=== PATIENT | male | born 1960 | race Caucasian/White ===

== ENCOUNTER 2020-01-23 07:10 | Emergency (ER) | payer SELFPAY ==
--- NOTE | 2020-01-23 07:37 | EDM.PDOC ---
ED HPI GENERAL MEDICAL PROBLEM - General Chief Complaint: General Stated Complaint: DIABETIC ISSURES Time Seen by Provider: 01/23/20 07:33 Source of Information: Reports: Patient History Limitations: Reports: No Limitations - History of Present Illness INITIAL COMMENTS - FREE TEXT/NARRATIVE: 59-year-old male presents to the ED for evaluation of type 2 diabetes. He states he is been out of his metformin for about 3 months. Was taking 500 mg twice daily. This primarily occurred because he could not afford the medication as he was laid off of work. He feels fine. He feels he has urinary frequency during the day but is not up much at night to go. His weight is staying stable. His only other problem is having some intermittent loose watery diarrhea once or twice per day. He tends to drink bottled water. He has been diabetic for approximately 3 years. Is a strong family history of diabetes. Onset: Other (Chronic problem) Duration: Chronic Location: Reports: Generalized (Mild weakness generalized) Quality: Reports: Other Severity: Mild Improves with: Reports: None Worsens with: Reports: None Context: Denies: Activity, Exercise, Lifting, Sick Contact, Trauma, Other Associated Symptoms: Reports: Malaise, Weakness. 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 Denies: Fever, Chills, Decreased Appetite HEENT: Reports: No Symptoms Respiratory: Reports: No Symptoms Cardiovascular: Reports: No Symptoms Endocrine: Reports: Fatigue GI/Abdominal: Reports: Diarrhea (Sent to be on the looser side usually once or twice per day) : Reports: Frequency, Other Musculoskeletal: Reports: Joint Pain (Tour usually x2 patient no pain in his knees hips low back and neck.) Skin: Reports: No Symptoms Neurological: Reports: No Symptoms Psychiatric: Reports: No Symptoms Hematologic/Lymphatic: Reports: No Symptoms Immunologic: Reports: No Symptoms ED EXAM, GENERAL - Physical Exam Exam: See Below Exam Limited By: No Limitations General Appearance: Alert, WD/WN, No Apparent Distress, Other (Temperature is 37.1 with a heart rate of 80. BP 117/77 with respiratory to 18. Pulse ox 100% on room air.) Eye Exam: Bilateral Eye: Normal Inspection, PERRL Throat/Mouth: Normal Inspection, Normal Lips, Normal Oropharynx, Other Head: Atraumatic, Normocephalic Neck: Normal Inspection, Supple, Non-Tender, Full Range of Motion. No: Lymphadenopathy (L), Lymphadenopathy (R) Respiratory/Chest: No Respiratory Distress, Lungs Clear, Normal Breath Sounds, No Accessory Muscle Use, Chest Non-Tender Cardiovascular: Normal Peripheral Pulses, Regular Rate, Rhythm, No Edema, No Gallop, No Murmur, No Rub Peripheral Pulses: 1+: Posterior Tibial (L), Posterior Tibial (R), Dorsalis Pedis (L), Dorsalis Pedis (R), 3+: Carotid (L), Carotid (R) GI/Abdominal: Normal Bowel Sounds, Soft, Non-Tender, No Organomegaly, No Abnormal Bruit, No Mass, Pelvis Stable (Male) Exam: No Hernia Back Exam: Normal Inspection, Full Range of Motion. No: CVA Tenderness (L), CVA Tenderness (R) Extremities: Normal Inspection, Normal Range of Motion, Non-Tender, No Pedal Edema Neurological: Alert, Oriented, CN II-XII Intact, Normal Cognition, Normal Gait, No Motor/Sensory Deficits Psychiatric: Normal Affect, Normal Mood Skin Exam: Warm, Dry, Intact, Normal Color, No Rash Course - Vital Signs Last Recorded V/S: Last Vital Signs Temp 37.1 C 01/23/20 07:19 Pulse 80 01/23/20 07:19 Resp 18 01/23/20 07:19 BP 117/77 01/23/20 07:19 Pulse Ox 100 01/23/20 07:19 - Orders/Labs/Meds Labs: Laboratory Tests 01/23/20 01/23/20 01/23/20 Range/Units 07:50 07:50 07:50 WBC 7.04 (4.23-9.07) K/mm3 RBC 4.55 L (4.63-6.08) M/mm3 Hgb 14.5 (13.7-17.5) gm/dl Hct 41.1 (40.1-51.0) % MCV 90.3 (79.0-92.2) fl MCH 31.9 (25.7-32.2) pg MCHC 35.3 (32.2-35.5) g/dl RDW Std Deviation 45.9 H (35.1-43.9) fL Plt Count 202 (163-337) K/mm3 MPV 9.6 (9.4-12.3) fl Neut % (Auto) 56.2 (34.0-67.9) % Lymph % (Auto) 28.8 (21.8-53.1) % [place] % (Auto) 11.9 (5.3-12.2) % Eos % (Auto) 2.6 (0.8-7.0) Baso % (Auto) 0.4 (0.1-1.2) % Neut # (Auto) 3.95 (1.78-5.38) K/mm3 Lymph # (Auto) 2.03 (1.32-3.57) K/mm3 [place] # (Auto) 0.84 H (0.30-0.82) K/mm3 Eos # (Auto) 0.18 (0.04-0.54) K/mm3 Baso # (Auto) 0.03 (0.01-0.08) K/mm3 Sodium 139 (136-145) mEq/L Potassium 3.6 (3.5-5.1) mEq/L Chloride 106 (98-107) mEq/L Carbon Dioxide 21 (21-32) mEq/L Anion Gap 15.6 H (5-15) BUN 19 H (7-18) mg/dL Creatinine 0.9 (0.7-1.3) mg/dL Est Cr Clr Drug Dosing 90.12 mL/min Estimated GFR (MDRD) > 60 (>60) mL/min BUN/Creatinine Ratio 21.1 H (14-18) Glucose 174 H (74-106) mg/dL Hemoglobin A1c (4.50-6.20) % Calcium 8.3 L (8.5-10.1) mg/dL Magnesium 1.7 L (1.8-2.4) mg/dl Total Bilirubin 0.7 (0.2-1.0) mg/dL AST 20 (15-37) U/L ALT 25 (16-63) U/L Alkaline Phosphatase 75 (46-116) U/L Total Protein 6.8 (6.4-8.2) g/dl Albumin 3.5 (3.4-5.0) g/dl Globulin 3.3 gm/dL Albumin/Globulin Ratio 1.1 (1-2) Cholesterol 109 (<200) mg/dL LDL Cholesterol Direct 71 (<100) mg/dL HDL Cholesterol 30.0 L (40-59) mg/dL Ketones 0.23 (0.0-0.3) mM / Range/Units 07:50 WBC (4.23-9.07) K/mm3 RBC (4.63-6.08) M/mm3 Hgb (13.7-17.5) gm/dl Hct (40.1-51.0) % MCV (79.0-92.2) fl MCH (25.7-32.2) pg MCHC (32.2-35.5) g/dl RDW Std Deviation (35.1-43.9) fL Plt Count (163-337) K/mm3 MPV (9.4-12.3) fl Neut % (Auto) (34.0-67.9) % Lymph % (Auto) (21.8-53.1) % [place] % (Auto) (5.3-12.2) % Eos % (Auto) (0.8-7.0) Baso % (Auto) (0.1-1.2) % Neut # (Auto) (1.78-5.38) K/mm3 Lymph # (Auto) (1.32-3.57) K/mm3 [place] # (Auto) (0.30-0.82) K/mm3 Eos # (Auto) (0.04-0.54) K/mm3 Baso # (Auto) (0.01-0.08) K/mm3 Sodium (136-145) mEq/L Potassium (3.5-5.1) mEq/L Chloride (98-107) mEq/L Carbon Dioxide (21-32) mEq/L Anion Gap (5-15) BUN (7-18) mg/dL Creatinine (0.7-1.3) mg/dL Est Cr Clr Drug Dosing mL/min Estimated GFR (MDRD) (>60) mL/min BUN/Creatinine Ratio (14-18) Glucose (74-106) mg/dL Hemoglobin A1c 7.40 H (4.50-6.20) % Calcium (8.5-10.1) mg/dL Magnesium (1.8-2.4) mg/dl Total Bilirubin (0.2-1.0) mg/dL AST (15-37) U/L ALT (16-63) U/L Alkaline Phosphatase (46-116) U/L Total Protein (6.4-8.2) g/dl Albumin (3.4-5.0) g/dl Globulin gm/dL Albumin/Globulin Ratio (1-2) Cholesterol (<200) mg/dL LDL Cholesterol Direct (<100) mg/dL HDL Cholesterol (40-59) mg/dL Ketones (0.0-0.3) mM - Radiology Interpretation Free Text/Narrative:: 59-year-old male presents to the ED for evaluation of fatigue. He has a known history of type 2 diabetes controlled with metformin but has been off of this medication for about 3 months due to lack of funds. He is feeling increasingly fatigued and is wondering if his blood sugars are out of control. He does not have lancets or testing materials to check his sugars. If his weight is stable. He is may be up once during the night to void. He does not take water to bed. He does drink a lot of water throughout the day. I can smell no ketones on his breath. His only other complaint is some intermittent diarrhea i.e. loose and watery once or twice per day out any blood. Plan routine labs to be performed including a glycosylated protein. He is essentially fasting at this time. His only other problem is hypercholesterolemia which will be checked today as well. - Re-Assessments/Exams Free Text/Narrative Re-Assessment/Exam: 01/23/20 08:24 Hematology is back revealing a normal white count at 7.04. The auto differential shows 56% neutrophils. Hemoglobin is 14.5 with hematocrit of 41.1. Platelet count 202,000 01/23/20 08:36 Chemistry reveals a sodium of 139 potassium 3.6. Chloride 106 with a bicarb of 21. Anion gap is 15.6. BUN is 19 with a creatinine of 0.9. GFR is greater than 60. Glucose 174 with a hemoglobin A1c of 7.40. Calcium is 8.3 with a magnesium of 1.7. Liver function is otherwise normal. Total protein 6.8 with an albumin fraction of 3.5. Cholesterol is 109 with an LDL cholesterol of 71 and HDL cholesterol of 30. Ketones are 0.23 . Blood sugars overall are very well controlled. I suspect that chronic loose stools is secondary to medicines being used for sinus disease especially with mucolytic agents. Plan I will return him to metformin 500 mg twice daily for diabetic control. He is used this in the past with little problems. I also wrote a prescription for lancets and for strips for the One Touch machine so that he can test his blood sugars on a random fashion. He wishes to follow-up locally and I suggested following up with Dr. Charles. Departure - Departure Time of Disposition: 08:49 Disposition: Home, Self-Care 01 Condition: Fair Clinical Impression: Type 2 diabetes mellitus Qualifiers: Diabetes mellitus fpc insulin use: without fpc use Diabetes mellitus complication status: without complication Qualified Code(s): E11.9 - Type 2 diabetes mellitus without complications - Discharge Information *PRESCRIPTION DRUG MONITORING PROGRAM REVIEWED*: Not Applicable *COPY OF PRESCRIPTION DRUG MONITORING REPORT IN PATIENT FIDEL: Not Applicable Prescriptions: metFORMIN [Glucophage XR] 500 mg PO BIDMEALS #60 tab.er Instructions: Type 2 Diabetes Mellitus, Diagnosis, Adult, Tips for Eating Away From Home If You Have Diabetes, Type 2 Diabetes Mellitus, Self Care, Adult Referrals: PCP,None [Primary Care Provider] - Forms: ED Department Discharge Additional Instructions: Evaluation in the emergency room today in regards to known type 2 diabetes mellitus without treatment for the last 3 months due to financial barriers to purchasing medications. Test today revealed your fasting blood sugar was elevated at 174 confirming that you do have type 2 diabetes. The glycosylated protein which looks at your blood sugars over the last 3 months was actually pretty darn good at 7.4. We aim for a treatment level of under 7 with just means the diabetes is fairly well controlled. Cholesterol also proved to be very well controlled at present. I suspect the chronic loose stools are secondary to medicines being used for sinus congestion. Suggest going off of these for about a week to see if the stools do not form up. Dust resuming metformin 500 mg twice daily for blood sugar control. Written in this regard. Scripts were also written for lancets and for the strips for the One Touch machine so that you can test your blood sugars on a random fashion as we discussed and write them down in a notebook which is helpful to the doctor. Just follow-up with Dr.brian Salmeron -who is an psychologist personnel on the third floor of the [facility] of the [facility]. Please phone [phone] to arrange an appointment. Sepsis Event Note - Evaluation Sepsis Screening Result: No Definite Risk - Focused Exam Vital Signs: Vital Signs Temp Pulse Resp BP Pulse Ox 01/23/20 07:19 37.1 C 80 18 117/77 100 Date Exam was Performed: 01/23/20 Time Exam was Performed: 08:53
[2020-01-23 08:26] LABS: HEMOGLOBIN A1C 7.4 % (4.50-6.20)
== END 2020-01-23 09:10 | disposition home or self-care (01) ==
LOC: JD.ED 07:10
DX: E11.9 Type 2 diabetes mellitus without complications (principal); E78.00 Pure hypercholesterolemia, unspecified; Z79.84 Long term (current) use of oral hypoglycemic drugs; Z79.899 Other long term (current) drug therapy
CPT/HCPCS: 36415; 80053; 82009; 82465; 83036; 83718; 83721; 83735; 85025; 99284